=== PATIENT | male | born 1990 | race Caucasian/White ===

== ENCOUNTER 2018-08-17 08:56 | Emergency (ER) | payer OTHER ==
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
[2018-08-17 10:26] VITALS: BP 148/82
== END 2018-08-17 10:24 | disposition home or self-care (01) ==
LOC: ED 08:56
DX: S43.102A Unspecified dislocation of left acromioclavicular joint, initial encounter (principal); V86.99XA Unspecified occupant of other special all-terrain or other off-road motor vehicle injured in nontraffic accident, initial encounter
CPT/HCPCS: 99281; 99283

== ENCOUNTER 2024-03-10 16:11 | Emergency (ER) | payer OTHER, BC ==
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
[2024-03-10 16:40] LABS: BASOPHILS % (AUTO) 0.3 %; EOSINOPHILS # (AUTO) 0.1 10^3/uL (0.0-0.7); EOSINOPHILS % (AUTO) 0.5 %; HCT - HEMATOCRIT 42.3 % (42.0-52.0); HGB - HEMOGLOBIN 14.9 g/dL (14.0-18.0); LYMPHOCYTES # (AUTO) 0.9 10^3/uL (1.5-3.5); LYMPHOCYTES % (AUTO) 7.9 %; MEAN CORPUSCULAR HEMOGLOBIN 29.7 pg (27.0-31.0); MEAN CORPUSCULAR HGB CONC 35.2 g/dL (32.0-36.0); MEAN CORPUSCULAR VOLUME 84.4 fL (80.0-94.0); MEAN PLATELET VOLUME 10.3 fL (7.4-11.4); MONOCYTES # (AUTO) 0.7 10^3/uL (0.0-1.0); MONOCYTES % (AUTO) 6.2 %; NEUTROPHILS # (AUTO) 9.7 10^3/uL (1.5-6.6); NEUTROPHILS % (AUTO) 84.8 %; PLT - PLATELET COUNT 208 10^3/uL (130-450); RED BLOOD COUNT 5.01 10^6/uL (4.70-6.10); RED CELL DISTRIBUTION WIDTH 12.7 % (12.0-15.0); WHITE BLOOD COUNT 11.5 x10^3/uL (4.8-10.8)
[2024-03-10] MEDS: IBUPROFEN 800 MG TABLET PO STA (16:43)
[2024-03-10 16:53] LABS: ALBUMIN 4.7 g/dL (3.2-5.5); ALBUMIN/GLOBULIN RATIO 1.7 (1.0-2.2); BILIRUBIN,TOTAL 0.4 mg/dL (0.2-1.0); CALCIUM 9.6 mg/dL (8.5-10.3); POTASSIUM 3.8 mmol/L (3.5-4.5); TOTAL PROTEIN 7.4 g/dL (6.4-8.9)
--- NOTE | 2024-03-10 17:21 | CT Report ---
PROCEDURE: Head WO INDICATIONS: head/neck inj NURSING HOME TECHNIQUE: Noncontrast 4.5 mm thick angled axial sections acquired from the foramen magnum to the vertex. For r adiation dose reduction, the following was used: automated exposure control, adjustment of mA and/or kV according to patient size. COMPARISON: None. FINDINGS: Image quality: Excellent. CSF spaces: Basal cisterns are patent. No extra-axial fluid collections. Ventricles are normal in size and shape. Brain: No midline shift. No intracranial masses or hemorrhage. Fletcher-white matter interface is norm al. Skull and face: Calvarium and visualized facial bones are intact, without suspicious lesions. Sinuses: Visualized sinuses and mastoids are clear. IMPRESSION: No acute intracranial pathology. Reviewed by: Karla Le MD on 03/10/2024 5:20 PM PDT Approved by: Karla Le MD on 03/10/2024 5:20 PM PDT Station ID: [id number]
--- NOTE | 2024-03-10 17:22 | XRAY Report ---
PROCEDURE: Foot 3+V RT INDICATIONS: foot inj TECHNIQUE: 3 views of the foot were acquired. COMPARISON: None. FINDINGS: Bones: No fractures or dislocations. No suspicious bony lesions. Mild osteoarthritic changes. Soft tissues: No tibiotalar joint effusion. Achilles tendon appears normal. IMPRESSION: No acute bony abnormality. If clinical symptoms persist, consider a follow-up exam in 7-10 days, or a dvanced imaging such as CT or MRI. Reviewed by: Karla Le MD on 03/10/2024 5:20 PM PDT Approved by: Karla Le MD on 03/10/2024 5:20 PM PDT Station ID: [id number]
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
[2024-03-10] MEDS: BACITRACIN ZINC OINT 1 PACKET TOP STA (17:29)
[2024-03-10 17:47] VITALS: BP 117/70; O2SAT 97
== END 2024-03-10 17:52 | disposition home or self-care (01) ==
LOC: ED 16:11
DX: S06.0X0A Concussion without loss of consciousness, initial encounter (principal); S60.512A Abrasion of left hand, initial encounter; S60.511A Abrasion of right hand, initial encounter; S90.31XA Contusion of right foot, initial encounter; V23.49XA Other motorcycle driver injured in collision with car, pick-up truck or van in traffic accident, initial encounter; Y93.55 Activity, bike riding; Y92.410 Unspecified street and highway as the place of occurrence of the external cause; M47.812 Spondylosis without myelopathy or radiculopathy, cervical region
CPT/HCPCS: 36415; 70450; 72125; 73630; 80053; 85025; 99284; A9270